=== PATIENT | male | born 1945 | race Caucasian/White ===

== ENCOUNTER 2018-01-31 06:49 | Emergency (ER) | payer BC, SELFPAY ==
[2018-01-31] MEDS ORDERED: Ondansetron HCl/PF 4 MG/2 ML Vial ONE (07:32)
[2018-01-31 07:36] LABS: #Basophils 0.1 thou/uL (0.0-0.2); #Eosinphils 0.4 thou/uL (0.0-0.7); #Lymphocytes 1.4 thou/uL (1.20-3.40); #Monocytes 0.6 thou/uL (0.11-0.59); %Basophils 1.2 % (0.0-1.0); %Eosinophils 5.7 % (0.0-10.0); %Lymphocytes 21.3 % (21.0-51.0); %Monocytes 9.5 % (0.0-10.0); %Neutrophils 62.4 % (42.0-75.0); Hemoglobin 14.3 g/dL (14.0-18.0); Mean Corpuscular HGB CONC 33.7 g/dL (32.0-36.0); Mean Corpuscular Hemoglobin 32.5 pg (27.0-31.0); Mean Corpuscular Volume 96.5 fl (80.0-94.0); Mean Platelet Volume 7.7 fL (7.4-10.4); Platelet Count 160 thou/uL (130-400); RBC Distribution Width 11.4 % (11.5-14.5); Red Blood Cell (RBC) Count 4.39 mill/uL (4.70-6.10); White Blood Cell (WBC) Count 6.3 thou/uL (4.8-10.8)
[2018-01-31 07:55] LABS: ALT (SGPT) 24 U/L (8-55); AST (SGOT) 21 U/L (5-34); Albumin 3.9 g/dL (3.4-4.8); Alkaline Phosphatase 48 U/L (40-150); Anion Gap 13 mmol/L (10-20); BUN (Urea Nitrogen) 21 mg/dL (8.4-25.7); Bilirubin, Total 0.5 mg/dL (0.2-1.2); CK (CPK) 112 U/L (30-200); Calc. Creatinine Clearance 0 mL/min (70-130); Carbon Dioxide 24 mmol/L (23-31); Chloride 107 mmol/L (98-107); Estimated GFR-MDRD 76; Globulin 2.5 g/dL (2.4-3.5); Glucose 131 mg/dL (83-110); Potassium 4.3 mmol/L (3.5-5.1); Protein, Total 6.4 g/dL (5.8-8.1); Sodium 140 mmol/L (136-145)
[2018-01-31 07:56] LABS: INR-International Normal Ratio 0.9; PTT 25.6 SEC (22.9-36.1); Prothrombin Time 12.6 SEC (12.0-14.7)
[2018-01-31 07:57] LABS: CKMB 2.3 ng/mL (0-6.6); Troponin I Less than 0.010 ng/mL (< 0.028)
--- NOTE | 2018-01-31 08:11 | CT ---
BRAIN CT WITHOUT IV CONTRAST: Date: 01/31/18 HISTORY: 72-year-old male with history of double vision, nausea, and dizziness. FINDINGS: No focal mass or midline shift. No intra or extra-axial hemorrhage. Sinuses and mastoids are clear of acute process. IMPRESSION: No mass or bleed, or other acute process. POS: OFF
== END 2018-01-31 10:17 | disposition short-term general hospital (02) ==
LOC: NAV ERS 06:49
DX: H53.2 Diplopia (principal); G43.909 Migraine, unspecified, not intractable, without status migrainosus; Z87.891 Personal history of nicotine dependence
CPT/HCPCS: 36415; 70450; 80053; 82553; 84484; 85025; 85610; 85730; 93005; 96374; J2405

== ENCOUNTER 2018-02-03 14:07 | Emergency (ER) | payer MEDICARE, BC ==
[2018-02-03] MEDS ORDERED: Sodium Chloride 0.9% 1,000 ML ONE (14:54)
[2018-02-03 15:01] LABS: #Basophils 0.1 thou/uL (0.0-0.2); #Neutrophils 13.1 thou/uL (1.40-6.50); %Basophils 0.6 % (0.0-1.0); %Eosinophils 0.3 % (0.0-10.0); %Lymphocytes 6.6 % (21.0-51.0); %Monocytes 6.3 % (0.0-10.0); %Neutrophils 86.2 % (42.0-75.0); Hemoglobin 14.8 g/dL (14.0-18.0); Mean Corpuscular HGB CONC 32.1 g/dL (32.0-36.0); Mean Corpuscular Hemoglobin 31.4 pg (27.0-31.0); Mean Corpuscular Volume 97.8 fl (80.0-94.0); Mean Platelet Volume 7.2 fL (7.4-10.4); Platelet Count 179 thou/uL (130-400); RBC Distribution Width 11.2 % (11.5-14.5); Red Blood Cell (RBC) Count 4.71 mill/uL (4.70-6.10); White Blood Cell (WBC) Count 15.2 thou/uL (4.8-10.8)
[2018-02-03 15:15] LABS: ALT (SGPT) 27 U/L (8-55); AST (SGOT) 24 U/L (5-34); Albumin 4.1 g/dL (3.4-4.8); Alkaline Phosphatase 56 U/L (40-150); Anion Gap 14 mmol/L (10-20); BUN (Urea Nitrogen) 17 mg/dL (8.4-25.7); Bilirubin, Total 0.7 mg/dL (0.2-1.2); Calc. Creatinine Clearance 0 mL/min (70-130); Calcium 9.2 mg/dL (7.8-10.44); Carbon Dioxide 24 mmol/L (23-31); Chloride 104 mmol/L (98-107); Estimated GFR-MDRD 78; Globulin 2.4 g/dL (2.4-3.5); Glucose 124 mg/dL (83-110); Potassium 3.9 mmol/L (3.5-5.1); Protein, Total 6.5 g/dL (5.8-8.1); Sodium 138 mmol/L (136-145)
--- NOTE | 2018-02-03 15:58 | CT ---
CT OF THE ABDOMEN AND PELVIS WITHOUT IV CONTRAST: INDICATION: Severe constipation and rectal pain and lower abdominal pain. FINDINGS: There is a prominent amount of retained fluid within the rectum. A normal appendix is seen within the right lower quadrant of the abdomen. There is mild right hydronephrosis. No definite ureteral calculus was noted. There are multiple malina pected left peripelvic cysts. There is bilateral nonobstructing renal calculi. There is fatty infiltration of the liver. The unopacified pancreas, spleen, and adrenal glands are unremarkable. There are scattered vascular calcifications. No drainable fluid collection is evident. The bladder appears within normal limits on this noncontra st exam. There is scattered degenerative change. IMPRESSION: 1. Mild right hydronephrosis. No definite ureteral calculus is noted. Ascending urinary tract infe ction cannot be entirely excluded. Recommend correlation to clinical exam and urinary laboratories. 2. Bilateral nephrolithiasis. Multiple left-sided peripelvic cysts. 3. Fatty liver. 4. Normal appendix. 5. A prominent amount of retained stool within the rectum. POS: DOUG
== END 2018-02-03 16:20 | disposition home or self-care (01) ==
LOC: NAV ERS 14:07
DX: K59.00 Constipation, unspecified (principal); I10 Essential (primary) hypertension; D72.828 Other elevated white blood cell count; G43.909 Migraine, unspecified, not intractable, without status migrainosus; Z87.442 Personal history of urinary calculi; Z87.891 Personal history of nicotine dependence
CPT/HCPCS: 74176; 80053; 83605; 85025; 96360; J7050

== ENCOUNTER 2018-02-18 20:15 | Emergency (ER) | payer MEDICARE, BC ==
[2018-02-18 20:46] LABS: Bilirubin Negative (Negative); Blood, Urine Large (Negative); Glucose, Urine (Dipstick) Negative (Negative); Leukocyte Negative (Negative); Nitrite Negative (Negative); Protein, Urine (Dipstick) Trace mg/dL (Neg-Trace); Urobilinogen 0.2 mg/dL (0.2-1.0)
[2018-02-18] MEDS ORDERED: Ketorolac Tromethamine 30 MG/ML VIAL ONE (20:46)
[2018-02-18 20:54] LABS: Clarity SL HAZY (Clear)
[2018-02-18 20:54] LABS: #Basophils 0.1 thou/uL (0.0-0.2); #Eosinphils 0.2 thou/uL (0.0-0.7); #Lymphocytes 1.4 thou/uL (1.20-3.40); #Monocytes 0.6 thou/uL (0.11-0.59); #Neutrophils 6.5 thou/uL (1.40-6.50); %Basophils 1.1 % (0.0-1.0); %Eosinophils 2.1 % (0.0-10.0); %Lymphocytes 15.6 % (21.0-51.0); %Monocytes 6.7 % (0.0-10.0); %Neutrophils 74.5 % (42.0-75.0); Hemoglobin 13.7 g/dL (14.0-18.0); Mean Corpuscular HGB CONC 31.7 g/dL (32.0-36.0); Mean Corpuscular Hemoglobin 31.3 pg (27.0-31.0); Mean Corpuscular Volume 98.7 fl (80.0-94.0); Mean Platelet Volume 6.8 fL (7.4-10.4); Platelet Count 198 thou/uL (130-400); RBC Distribution Width 11.4 % (11.5-14.5); Red Blood Cell (RBC) Count 4.36 mill/uL (4.70-6.10); White Blood Cell (WBC) Count 8.7 thou/uL (4.8-10.8)
[2018-02-18 20:57] LABS: Squamous Epithelial 0-3 HPF (0-3); WBC/HPF 0-3 HPF (0-3)
[2018-02-18 21:07] LABS: ALT (SGPT) 23 U/L (8-55); AST (SGOT) 23 U/L (5-34); Albumin 4.1 g/dL (3.4-4.8); Alkaline Phosphatase 53 U/L (40-150); Anion Gap 14 mmol/L (10-20); BUN (Urea Nitrogen) 24 mg/dL (8.4-25.7); Bilirubin, Total 0.4 mg/dL (0.2-1.2); Calc. Creatinine Clearance 0 mL/min (70-130); Calcium 9.3 mg/dL (7.8-10.44); Carbon Dioxide 22 mmol/L (23-31); Chloride 107 mmol/L (98-107); Estimated GFR-MDRD 53; Globulin 2.4 g/dL (2.4-3.5); Glucose 140 mg/dL (83-110); Potassium 4.3 mmol/L (3.5-5.1); Protein, Total 6.5 g/dL (5.8-8.1); Sodium 139 mmol/L (136-145)
--- NOTE | 2018-02-18 21:09 | CT ---
CT ABDOMEN AND PELVIS WITHOUT CONTRAST STONE PROTOCOL 02/18/18 HISTORY: Left flank pain radiating to the groin. COMPARISON: CT abdomen and pelvis without contrast 02/03/18. FINDINGS: Lung base are clear. No pericardial effusion. Moderate left sided hydroureteronephrosis due to distal partially obstructing 3 mm calculus at the ur eterovesicular junction. Multiple left sided parapelvic cysts. Multiple right sided parapelvic cysts. Punctate bilateral calculi measuring up to 2 mm are present within both renal collecting systems. No right sided hydroureteronephrosis. No dilated loops of large or small bowel. Asymmetric left sided p erinephric stranding. Appendix is visualized and is normal. No free intraperitoneal gas or fluid. The aorta is mildly tortuous. Mild diverticular disease sigmoid colon without active inflammation. Degenerative vertebral body height lower lumbar spine, chronic. IMPRESSION: Mild to moderate left sided hydroureteronephrosis due to a partially obstructing calculus distal left ureter at the ureterovesicular junction measuring 2-3 mm. POS: JJ
[2018-02-18] MEDS ORDERED: Ondansetron HCl/PF 4 MG/2 ML Vial ONE (21:42)
[2018-02-18] MEDS ORDERED: Morphine 4 MG/ML Carpuject ONE (21:42)
[2018-02-18] MEDS ORDERED: HYDROcodone/Acetaminophen 5/325 mg Tablet ONE (22:36)
== END 2018-02-18 22:42 | disposition home or self-care (01) ==
LOC: NAV ERS 20:15
DX: N20.0 Calculus of kidney (principal); G43.909 Migraine, unspecified, not intractable, without status migrainosus; Z87.891 Personal history of nicotine dependence; Z79.899 Other long term (current) drug therapy
CPT/HCPCS: 74176; 80053; 81003; 81015; 85025; 96361; 96374; 96375; J1885; J2270; J2405